=== PATIENT | male | born 1965 | race Caucasian/White ===

== ENCOUNTER → 2019-07-10 | Outpatient (CLI) | payer SELFPAY ==
[2015-12-19 19:48] VITALS: BP 134/88
[~2019-07-10] MED LIST: GOOD NEIGHBOR200 M3 PO
[2019-07-10 15:04] LABS: EOS # 0.4 (0.04-0.40); EOS % 3.9 % (0.0-4.0); HEMATOCRIT 43.1 % (42.0-52.0); HEMOGLOBIN 15.3 g/dL (13.5-18.0); LYMPH# 2.9 (1.50-4.00); MEAN CELL VOLUME 87 fl (78-100); MEAN CORPUSCULAR HEMOGLOBIN 31 pg (27-31); MEAN CORPUSCULAR HGB CONC 36 g/dL (33-37); MEAN PLATELET VOLUME 8.9 fl (7.4-10.4); MONO # 0.9 (0.20-0.80); NEU # 4.9 (1.40-6.50); PLATELET COUNT 269 K/mm3 (130-400); RED BLOOD COUNT 4.96 M/mm3 (4.20-5.60); RED CELL DISTRIBUTION WIDTH 12.3 % (11.5-14.5); WHITE BLOOD COUNT 9.2 K/mm3 (4.8-10.8)
[2019-07-10 15:18] LABS: TOTAL PROTEIN 6.9 g/dL (6.4-8.3)
[2019-07-10 15:20] LABS: TOTAL BILIRUBIN 1.4 mg/dL (0.2-1.2)
== END ==
LOC: LAB 14:49
PROVIDERS: Physician Assistant
DX: Z12.5 Encounter for screening for malignant neoplasm of prostate (principal); Z13.29 Encounter for screening for other suspected endocrine disorder; Z13.220 Encounter for screening for lipoid disorders; I10 Essential (primary) hypertension; F90.1 Attention-deficit hyperactivity disorder, predominantly hyperactive type; F41.9 Anxiety disorder, unspecified; F31.9 Bipolar disorder, unspecified

== ENCOUNTER → 2019-11-24 | Outpatient (CLI) | payer SELFPAY ==
[2015-12-19 19:48] VITALS: BP 134/88
[2019-11-24 13:53] LABS: BASO # 0.1 (0.02-0.10); EOS # 0.2 (0.04-0.40); EOS % 2.7 % (0.0-4.0); HEMATOCRIT 45.2 % (42.0-52.0); HEMOGLOBIN 15.6 g/dL (13.5-18.0); LYMPH# 2.4 (1.50-4.00); MEAN CELL VOLUME 89 fl (78-100); MEAN CORPUSCULAR HEMOGLOBIN 31 pg (27-31); MEAN CORPUSCULAR HGB CONC 35 g/dL (33-37); MEAN PLATELET VOLUME 8.6 fl (7.4-10.4); MONO # 0.8 (0.20-0.80); NEU # 4.8 (1.40-6.50); PLATELET COUNT 309 K/mm3 (130-400); RED BLOOD COUNT 5.11 M/mm3 (4.20-5.60); RED CELL DISTRIBUTION WIDTH 12.9 % (11.5-14.5); WHITE BLOOD COUNT 8.4 K/mm3 (4.8-10.8)
[2019-11-24 14:00] LABS: ALBUMIN 4.7 g/dL (3.5-5.0)
[2019-11-24 14:02] LABS: TOTAL PROTEIN 8.4 g/dL (6.4-8.3)
== END ==
LOC: LAB 13:37
PROVIDERS: Physician Assistant
DX: Z12.5 Encounter for screening for malignant neoplasm of prostate (principal); F31.81 Bipolar II disorder; I10 Essential (primary) hypertension; F44.81 Dissociative identity disorder; F41.9 Anxiety disorder, unspecified; R35.0 Frequency of micturition

== ENCOUNTER → 2021-01-26 | Outpatient (CLI) | payer SELFPAY ==
[2015-12-19 19:48] VITALS: BP 134/88
[2021-01-26 14:36] LABS: BASO # 0.08 (0.02-0.10); EOS # 0.28 (0.04-0.40); EOS % 3.6 % (0.0-4.0); HEMATOCRIT 43.7 % (42.0-52.0); HEMOGLOBIN 15.1 g/dL (13.5-18.0); LYMPH# 2.72 (1.50-4.00); MEAN CELL VOLUME 90 fl (78-100); MEAN CORPUSCULAR HEMOGLOBIN 31 pg (27-31); MEAN CORPUSCULAR HGB CONC 35 g/dL (33-37); MEAN PLATELET VOLUME 9.1 fl (7.4-10.4); MONO # 0.77 (0.20-0.80); NEU # 3.92 (1.40-6.50); PLATELET COUNT 246 K/mm3 (130-400); RED BLOOD COUNT 4.87 M/mm3 (4.20-5.60); RED CELL DISTRIBUTION WIDTH 12.7 % (11.5-14.5); WHITE BLOOD COUNT 7.8 K/mm3 (4.8-10.8)
[2021-01-26 14:43] LABS: ALBUMIN 3.6 g/dL (3.5-5.0); POTASSIUM 4.5 mmol/L (3.5-5.1)
[2021-01-26 14:44] LABS: CALCIUM 8.8 mg/dL (8.3-10.5)
[2021-01-26 14:46] LABS: TOTAL PROTEIN 6.3 g/dL (6.4-8.3)
[2021-01-26 14:48] LABS: TOTAL BILIRUBIN 0.4 mg/dL (0.2-1.2)
== END ==
LOC: LAB 14:06
PROVIDERS: Physician Assistant
DX: Z00.00 Encounter for general adult medical examination without abnormal findings (principal); Z13.29 Encounter for screening for other suspected endocrine disorder

== ENCOUNTER → 2022-02-14 | Outpatient (CLI) | payer SELFPAY ==
[2022-02-14 15:25] LABS: BASO # 0.08 K/mm3 (0.02-0.10); EOS # 0.32 K/mm3 (0.04-0.40); EOS % 3.8 % (0.0-4.0); HEMATOCRIT 43.2 % (42.0-52.0); HEMOGLOBIN 14.9 g/dL (13.5-18.0); LYMPH# 2.91 K/mm3 (1.50-4.00); MEAN CELL VOLUME 89 fl (78-100); MEAN CORPUSCULAR HEMOGLOBIN 31 pg (27-31); MEAN CORPUSCULAR HGB CONC 35 g/dL (33-37); MONO # 0.82 K/mm3 (0.20-0.80); NEU # 4.29 K/mm3 (1.40-6.50); PLATELET COUNT 270 K/mm3 (130-400); RED BLOOD COUNT 4.83 M/mm3 (4.20-5.60); RED CELL DISTRIBUTION WIDTH 12.5 % (11.5-14.5); WHITE BLOOD COUNT 8.4 K/mm3 (4.8-10.8)
[2022-02-14 15:35] LABS: ALBUMIN 3.8 g/dL (3.5-5.0); POTASSIUM 4.5 mmol/L (3.5-5.1)
[2022-02-14 15:37] LABS: CALCIUM 9.2 mg/dL (8.3-10.5)
[2022-02-14 15:38] LABS: TOTAL PROTEIN 6.8 g/dL (6.4-8.3)
[2022-02-14 15:40] LABS: TOTAL BILIRUBIN 0.6 mg/dL (0.2-1.2)
== END ==
LOC: LAB 15:12
PROVIDERS: Physician Assistant
DX: G43.909 Migraine, unspecified, not intractable, without status migrainosus (principal); K90.9 Intestinal malabsorption, unspecified

== ENCOUNTER 2024-01-30 19:30 | Emergency (ER) | payer SELFPAY ==
[~2024-01-30 19:30] MED LIST changes: +Ketorolac 30 MG/ML VIAL IV ONE; +NS 1,000 ML IV ONE; +Ondansetron 4 MG/2 ML VIAL IV ONE
[2024-03-06 04:54] LABS: PH-URINE 6.5 (5.0 - 8.0); URINE APPEARANCE CLEAR (CLEAR); URINE BILIRUBIN NEGATIVE (NEGATIVE); URINE COLOR YELLOW (YELLOW); URINE GLUCOSE NEGATIVE (NEGATIVE); URINE KETONE NEGATIVE (NEGATIVE); URINE PROTEIN(semi-quant) NEGATIVE (NEGATIVE)
[2024-03-06 04:55] LABS: URINE BLOOD TRACE-INTACT (NEGATIVE); URINE LEUKOCYTE ESTERASE NEGATIVE (NEGATIVE); URINE NITRATE NEGATIVE (NEGATIVE)
[2024-03-06 04:56] LABS: D-DIMER 0.41 mg/L FEU (0.15-0.50)
[2024-03-06 05:01] LABS: ALBUMIN 3.4 g/dL (3.5-5.0); ALCOHOL IN-HOUSE < 10 mg/dL (<10); ALT/SGPT 19 U/L (0-55); AST-SGOT 23 U/L (5-34); CALCIUM 8.2 mg/dL (8.3-10.5); CARBON DIOXIDE 21 mmol/L (22-29); GLUCOSE 125 mg/dL (75-110); SODIUM 140 mmol/L (136-145); TOTAL BILIRUBIN 0.4 mg/dL (0.2-1.2); TOTAL PROTEIN 5.8 g/dL (6.4-8.3); TROPONIN-I < 0.030 ng/mL (0.00-0.033)
[2024-03-06 05:02] LABS: BASO # 0.02 K/mm3 (0.02-0.10); HEMATOCRIT 37.4 % (42.0-52.0); HEMOGLOBIN 12.8 g/dL (13.5-18.0); LYMPH# 2.23 K/mm3 (1.50-4.00); MEAN CELL VOLUME 86 fl (78-100); MEAN CORPUSCULAR HEMOGLOBIN 29 pg (27-31); MEAN CORPUSCULAR HGB CONC 34 g/dL (33-37); MEAN PLATELET VOLUME 9.1 fl (7.4-10.4); MONO # 0.69 K/mm3 (0.20-0.80); NEU # 4.27 K/mm3 (1.40-6.50); PLATELET COUNT 293 K/mm3 (130-400); RED BLOOD COUNT 4.37 M/mm3 (4.20-5.60); WHITE BLOOD COUNT 7.5 K/mm3 (4.8-10.8)
== END 2024-01-30 22:48 | disposition home or self-care (01) ==
LOC: ED 19:30
PROVIDERS: Nurse Practitioner
DX: F15.90 Other stimulant use, unspecified, uncomplicated (principal); G43.909 Migraine, unspecified, not intractable, without status migrainosus; M79.602 Pain in left arm
CPT/HCPCS: J1885; J2405; J7030